=== PATIENT | female | born 1955 | race Caucasian/White ===

== ENCOUNTER 2024-09-17 12:14 | Day surgery (SDC) | payer MEDICARE, OTHER ==
[~2024-09-17] VITALS: Ht 165.1 cm; Wt 72.3 kg
[2024-09-17] VITALS (37 sets, daily range): BP systolic 91–147; BP diastolic 57–120
[~2024-09-17 12:14] MED LIST: ALEN70 PO; EpiNEPhrine 1 MG/1 ML 1ML Vial ONE; Estrace Vagin42.5 GM VAG; Lactated Ringer's 1,000 ML IV SCH; Lidocaine 2% 5 ML SDV ONE; Lidocaine 2% Jelly Uro-Jet ONE; Lidocaine HCl 4% 5 ML SDA INH ONE; Lidocaine HCl 4% 5 ML SDA ONE; MIRABEGRON ER25 MG PO; Midazolam HCl 1MG / ML 2ML Vial ONE; propofoL 40 ML IV ONE
--- NOTE | 2024-09-17 12:44 | NUR ---
Ambulatory in Day Surgery. History, Chart, Medications and Allergies reviewed before start of procedure. Patient confirms NPO status and agrees with scheduled surgery. Pre-Op teaching done. Pt verbalizes understanding. Patient States Post-Procedure ride home has been arranged.
--- NOTE | 2024-09-17 13:37 | NUR ---
09/17/24 Anh Perkins CONFIRMED AND REVIEWED H&P, MEDCICATIONS, ALLERGIES, MEDICAL HISTORY, RESPIRATORY HISTORY, VITAL SIGNS, 3-LEAD EKG, CONSENTS, AND PHYSICIAN ORDERS. PATIENT CONFIRMS NPO STATUS AND AGREES WITH SCHEDULED PROCEDURE. MONITOR INTACT WITH CONTINUOUS PULSE OXIMETRY, CAPNOGRAPHY, 3-LEAD EKG, INTERMITTENT BP. SUPPLEMENTAL O2 TO BE TITRATED THROUGHOUT PROCEDURE TO MAINTAIN O2 SATURATION ABOVE 90%. PATIENT DETERMINED TO BE ASA APPROPRIATE FOR PROPOFOL SEDATION PRIOR TO START OF PROCEDURE BY .MALLAMPATI CLASS 2 AIRWAY: COMPLETE VISUALIZATION OF THE UVULA.
[2024-09-17] MEDS ORDERED: Ipratropium/Albuterol SulF 2.5-0.5MG/3 ML Amp INH ONE (14:20)
--- NOTE | 2024-09-17 14:30 | NUR ---
PT INTO STEP S/P BRONCH. SATS 70'S WITH COUGH. UDN GIVEN-SATS 94% ON [address] JOHNSON AT BEDSIDE. PT BECOMING TACHYPNEIC AND REPORTS SOB. STAT CH1V ORDERED.PT GIVEN LIDO 4% NEB SHE IS STILL COUGHING AND SATS DOWN TO 80'S ON 10 LITERS O2. PREP FOR THORAVENT PLACEMENT PNEUMOTHORAX CONFIRMED.
[2024-09-17] MEDS ORDERED: Lidocaine HCl 4% 5 ML SDA ONE (14:35)
--- NOTE | 2024-09-17 14:50 | NUR ---
INTO ENDO 2 FOR THORAVENT PLACEMENT. SATS 89-92% ON 10 LITERS O2. RR 34-40 AND PT LABORING TO BREATHE. THORAVENT PLACED @ 1500 AND SATS 97% ON 4 LITERS NASAL CANULA. PT RR 20'S AND WOB IMPROVED. CH1V ORDERED FOR 1629. DR. JOHNSON TO RE-EVALUATE PT AT THAT TIME.
[2024-09-17] MEDS ORDERED: Acetaminophen/Codeine 300-30 mg PO ONE (15:05)
--- NOTE | 2024-09-17 15:25 | NUR ---
GAG REFLEX INTACT. PT GIVEN A SIP OF WATER-TOLERATED WELL. NO COUGHING OR SIGNS OF ASPIRATION. MED WITH TYLENOL #3 PO-SEE EMAR. PT REPORTS 4/10 RIGHT CHEST WALL PAIN. SATS 95-97% ON 3 LITERS NASAL CANULA.
--- NOTE | 2024-09-17 16:10 | NUR ---
ASSISTED PT OOB TO BSC-TOLERATED WELL. NO NOTED SOB AND MAINTAINED SATS 95-100% ON 4 LITERS NASAL CANULA. FIO2 TITRATED DOWN TO 2 LITERS NASAL CANULA.
--- NOTE | 2024-09-17 16:30 | NUR ---
CH1V COMPLETE. SATS 98% ON RA.
--- NOTE | 2024-09-17 17:00 | NUR ---
DR. JOHNSON AT BEDSIDE PROVIDING CXR RESULTS AND DISCHARGE INSTRUCTIONS. SATS 98% ON RA. NO NOTED SOB. PT DENIES COMPLAINTS.
--- NOTE | 2024-09-17 17:13 | NUR ---
PT DISCHARGED TO HOME-OUT VIA WHEELCHAIR WITH RX, DISCHARGE INSTRUCTIONS, AND BELONGINGS ON HAND.
[2024-09-17 18:03] LABS: Acinetobacter baumannii DNA Not Detected copy/mL (NOT DETECT); Adenovirus DNA Not Detected (NOT DETECT); Chlamydia pneumonia Not Detected (NOT DETECT); Enterobacter cloacae DNA Not Detected copy/mL (NOT DETECT); Escherichia coli DNA Not Detected copy/mL (NOT DETECT); Haemophilus influenzae DNA Not Detected copy/mL (NOT DETECT); Human Coronavirus RNA Not Detected (NOT DETECT); Human Metapneumovirus RNA Not Detected (NOT DETECT); Klebsiella aerogenes DNA Not Detected copy/mL (NOT DETECT); Klebsiella oxytoca DNA Not Detected copy/mL (NOT DETECT); Klebsiella pneumoniae DNA Not Detected copy/mL (NOT DETECT); Legionella pneumophila Not Detected (NOT DETECT); Moraxella catarrhalis DNA Not Detected copy/mL (NOT DETECT); Mycoplasma pneumoniae Not Detected (NOT DETECT); Proteus sp DNA Not Detected copy/mL (NOT DETECT); Pseudomonas aeruginosa DNA Not Detected copy/mL (NOT DETECT); Rhinovirus+Enterovirus RNA Not Detected (NOT DETECT); Serratia marcescens DNA Not Detected copy/mL (NOT DETECT); Staphylococcus aureus DNA Not Detected copy/mL (NOT DETECT); Streptococcus agalactiae DNA Not Detected copy/mL (NOT DETECT); Streptococcus pneumoniae DNA Not Detected copy/mL (NOT DETECT); Streptococcus pyogenes DNA Not Detected copy/mL (NOT DETECT)
[2024-09-17 18:04] LABS: Influenza virus A RNA Not Detected (NOT DETECT); Influenza virus B RNA Not Detected (NOT DETECT); Parainfluenza virus RNA Not Detected (NOT DETECT); Respiratory syncytial Vir RNA Not Detected (NOT DETECT)
== END 2024-09-17 17:13 | disposition home or self-care (01) ==
LOC: ORSCMMR 12:14 → ORD 13:30 → ORSCMMR 13:30
PROVIDERS: Internal Medicine Critical Care Medicine
PROC: 0B9H8ZX Drainage of Lung Lingula, Via Natural or Artificial Opening Endoscopic, Diagnostic (ICD-10-PCS; principal; 2024-09-17 13:30)
PROC: 0W9930Z Drainage of Right Pleural Cavity with Drainage Device, Percutaneous Approach (ICD-10-PCS; principal; 2024-09-17 13:30)
PROC: 0BBD8ZX Excision of Right Middle Lung Lobe, Via Natural or Artificial Opening Endoscopic, Diagnostic (ICD-10-PCS; principal; 2024-09-17 13:30)
DX: R05.3 Chronic cough (principal); R91.8 Other nonspecific abnormal finding of lung field; J98.4 Other disorders of lung; J95.811 Postprocedural pneumothorax; Z79.899 Other long term (current) drug therapy
CPT/HCPCS: 0528U; 71045; 87070; 87102; 87116; 87205; 88108; 88305; 88312; A9270; J0171; J2003; J2250; J2704; J7120